=== PATIENT | male | born 1990 | race Caucasian/White ===

== ENCOUNTER 2024-03-15 08:23 | Outpatient (AMB) | payer OTHER, SELFPAY ==
[2024-03-15 09:01] VITALS: BP 132/78; PULSE 78; TEMP 36.7; O2SAT 98; BMI 35.3
--- NOTE | 2024-03-15 09:01 | MHC.OFFWIV ---
Intake Vital Signs 03/15/24 09:01 Height 6 ft 2 in Weight 275 lb BMI 35.3 BP 132/78 Blood Pressure Location Lt brachial Position Sitting Pulse 78 Pulse Source Pulse Oximeter Temp 98.0 F Temp Source Oral Pulse Oximetry (%) 98 Intake Visit Reasons: EP ??? Sinus infection Intake Note: pt is here for sinus infection, started 3 days ago Patient Tobacco Use Status: Never used Tobacco Allergies No Known Allergies Allergy (Verified 03/15/24 09:12) Do you need a note to return to daycare/school/sports/work: No HPI HPI Comments History of Present Illness Details 33 y/o male patient who presents to walk in clinic with c/o URI symptoms x 3 days. PFSH Medical History Sinusitis Social History Patient Tobacco Use Status: Never used Tobacco Review of Systems Const All systems reviewed & are unremarkable except as noted in HPI and below Physical Exam Vital Signs: Last Vital Signs Temp 98.0 F 03/15/24 09:01 Pulse 78 03/15/24 09:01 BP 132/78 03/15/24 09:01 Pulse Ox 98 03/15/24 09:01 BMI result Body Mass Index 35.3 Const General: comfortable Nutritional Appearance: obese Orientation/consciousness: patient oriented x3 HEENT Head: Yes normocephalic Ears: external ears normal and TM abnormal erythematous and with fluid behind the TM General nose exam: Normal nasal mucous membranes and turbinates present Face and sinus: Yes sinuses nontender Mouth: moist mucous membranes Throat: Yes posterior oropharynx normal Resp Effort & Inspection: normal respiratory effort and able to speak in complete sentences Auscultation: clear to auscultation bilaterally, no crackles, no rales, no rhonchi and no wheezes Cardio Rate: regular rate Rhythm: regular rhythm Neuro General: patient oriented x3, gait normal and moves all extremities Psych Speech and movement: Normal speech and movement present Assessment & Plan Assessment & Plan (1) Upper respiratory tract infection: Code(s): J06.9 - Acute upper respiratory infection, unspecified Qualifiers: URI type: unspecified viral URI Qualified Code(s): J06.9 - Acute upper respiratory infection, unspecified Plan: OTC cold/cough remedies Rest and hydrate well with plenty of fluids Acetaminophen for pain relief. Medications: New oxymetazoline 0.05% (Afrin (oxymetazoline)) 2 sprays intranasal Q12H PRN 15 mL 0RF nasal congestion 3 days J06.9 - Acute upper respiratory infection, unspecified acetaminophen 1,000 mg (2 x 500 mg) PO Q6H PRN 30 caps 0RF pain J06.9 - Acute upper respiratory infection, unspecified azithromycin 500 mg PO DAILY 3 tabs 0RF 3 days J06.9 - Acute upper respiratory infection, unspecified cetirizine (Zyrtec) 10 mg PO DAILY PRN 90 tabs 0RF allergy symptoms J06.9 - Acute upper respiratory infection, unspecified Coding Level of Care Code Est Pt Level 3 (56608) Diagnoses Viral upper respiratory tract infection J06.9 URI type: unspecified viral URI Time Spent (min) 15
== END 2024-03-15 10:01 | disposition home or self-care (01) ==
PROVIDERS: Visit Provider Nurse Practitioner Family
DX: J06.9 Acute upper respiratory infection, unspecified (principal)
CPT/HCPCS: 99213